=== PATIENT | female | born 2005 | race Two or more races ===

== ENCOUNTER 2024-04-01 19:44 | Emergency (ER) | payer MEDICAID, OTHER ==
[~2024-04-01] VITALS: Ht 154.9 cm; Wt 41.2 kg
[2024-04-01 20:07] VITALS: BP 138/89; PULSE 83; RESP 16; TEMP 98.1; O2SAT 97
[2024-04-01] MEDS ORDERED: ACET500T58 PO (23:09)
== END 2024-04-01 23:52 | disposition home or self-care (01) ==
LOC: ER 19:44
DX: S46.911A Strain of unspecified muscle, fascia and tendon at shoulder and upper arm level, right arm, initial encounter (principal); R51.9 Headache, unspecified; R42 Dizziness and giddiness; V43.52XA Car driver injured in collision with other type car in traffic accident, initial encounter; Y93.89 Activity, other specified; Y92.488 Other paved roadways as the place of occurrence of the external cause; Y99.8 Other external cause status
CPT/HCPCS: 70450